=== PATIENT | female | born 1935 | race Caucasian/White ===

== ENCOUNTER → 2017-06-12 | Outpatient (CLI) | payer MEDICARE, BC ==
[2016-09-08 16:13] VITALS: BMI 33.5
[~2017-06-12] MED LIST: ACE500 PO; ACET-2007 PO; ACET-2043 PO; ACET-2146 PO; APIX2.5T PO; ASPI-715 PO; ASPI81TA94 PO; ATOR10TA65 PO; AZIT-9 PO; CALC-18 PO; CALC-547 PO; CALC500T86 PO; CEFU250 PO; CELE-1 PO; CELE100C79 PO; CELE50CA2 PO; CEPH250C37 PO; CHOL10005 PO; CHOL100059 PO; CIPR-344 PO; CIT20 PO; CITA-139 PO; CLO5 PO; CLON-298 PO; CLON-303 PO; CYAN500T38 PO; CYCL1DRO6 OP; CYCOD OP; DAR100 PO; DILT-100 PO; DILT-145 PO; DILT120C18 PO; DOC100 PO; DOCU-202 PO; DULO30CA6 PO; DULO60CA56 PO; ENO100I SC; ENO150PT SQ; ENOX120D5 SQ; ESC10 PO; ESCI20TA38 PO; ESOM10SU2 PO; ESOM40CA42 PO; FISH OIL1 CAP PO; FLU IM; FLU30SYR8 IM ONLY; FLU45SYR17 IM; FLU45SYR25 IM ONLY; FOLI0.4T56 PO; FURO-45 PO; GAB100 PO; GAB300 PO; GABA-549 PO; GABA250S3 PO; GUAI600T PO; HEPA100D58 SQ; HEPA500016 SQ; HEPA500035 SC; HEPA500035 SQ; HEPARIN; HYDR-385 PO; HYDR-389 PO; HYDR2TAB74 PO; HYDROCHLOROTHIAZIDE; LAN30PT PO; LANS30CA70 PO; LID5T TOP; LID5T TP; LOR5 PO; LOSA-165 PO; LOSA-37 PO; LOSA50TA72 PO; LOSARTAN; MELO-149 PO; MELO-150 PO; MELO-205 PO; METANEX; METH1TAB47 PO; METO25TA23 PO; MOM PO; MV-M1TAB38; NYST15PO12 TP; OMEG-55 PO; OMEG300C PO; ONDA8TAB91 PO; OXYB5TAB86 PO; OXYC-823 PO; OXYC20TA99 PO; OXYC5TAB38 PO; PAN40 PO; POLY17PO21 PO; POTA-23 PO; PRE10 PO; ROS10 PO; SERT-181 PO; SERT-184 PO; TRA50 PO; TRAM-420 PO; TRAM100T22 PO; TRIA15CR40 TP; VALS-25 PO; VALS1TAB80 PO; VALS1TAB96 PO; VIT D PO; VIT-3 PO; VIT-7 PO; VIT-9 PO; VIT1CAPS PO; VIT1CAPS32 PO; VIT1CAPS34 PO; VIT1CAPS38 PO; WARF2.5T4 PO; XOPENEX INH; ZANTAC PO; [UNRECOGNIZED DRUG - CODE] PO; [UNRECOGNIZED DRUG - OTHER]; [UNRECOGNIZED DRUG - OTHER] OD
[2017-06-12 16:23] LABS: PLATELET COUNT, AUTOMATED 135 K/uL (150-450)
== END ==
LOC: LAB 16:05
PROVIDERS: ATTEND Nurse Practitioner Family
DX: I10 Essential (primary) hypertension (principal); I50.9 Heart failure, unspecified; E11.40 Type 2 diabetes mellitus with diabetic neuropathy, unspecified; I48.91 Unspecified atrial fibrillation
CPT/HCPCS: 36415; 82040; 82247; 82310; 82374; 82435; 82565; 82947; 83036; 83880; 84075; 84132; 84155; 84295; 84450; 84460; 84520; 85025

== ENCOUNTER → 2017-10-18 | Outpatient (CLI) | payer MEDICARE, BC ==
[2016-09-08 16:13] VITALS: BMI 33.5
[~2017-10-18] MED LIST changes: -CITA-139 PO; +CITA-145 PO
--- NOTE | 2017-10-18 14:39 | RADIOLOGY IMAGING REPORT ---
[place] [facility] [place]: Paola Conteh : 1935 MR: [id number] V: [id number] EXAM DATE: ORDERING PHYSICIAN: YOANDY OSMAN TECHNOLOGIST: Location: [facility] - [place] Patient: Paola Conteh : 1935 Visit/Account:[id number] Date of Sevice: 10/18/2017 Exam type: SOFT TISSUE NON-SPECIFIC History: Painful left gluteal mass Comparison: None. Findings: In the lateral aspect of the left buttock just beneath the skin is a vague echogenic polylobular kristina d appearing mass measuring approximately 4 x 2.6 x 3.7 cm. A small amount of blood flow is noted wit hin the space-occupying process. A sinus tract was not demonstrated towards the skin although by his tory there is a small red area immediately adjacent on the skin. No fluid components are identified. IMPRESSION: 1. Solid probably lobular mildly hypervascular echogenic mass lateral aspect of the right buttocks m easuring 4 x 2.6 x 3.7 cm. This does not have the sonographic appearance of an abscess although coul d possibly represent an inflammatory phlegmon. Solid mass lesion not excluded. If further imaging i s desired CT or MR with and without contrast may be of value. Report Dictated By: Zoraida Mendenhall MD at 10/18/2017 2:31 PM Report E-Signed By: Zoraida Mendenhall MD at 10/18/2017 2:33 PM WSN:[email or web address]
== END ==
LOC: US 01:09
PROVIDERS: ATTEND Nurse Practitioner Family
DX: R22.2 Localized swelling, mass and lump, trunk (principal)
CPT/HCPCS: 76999

== ENCOUNTER → 2017-11-21 | Outpatient (CLI) | payer MEDICARE, BC ==
[2016-09-08 16:13] VITALS: BMI 33.5
[~2017-11-21] MED LIST changes: -CLON-298 PO; +CLON-331 PO; +IOPAMIDOL 76% 75 ML INFUS BTL 75 ML ONE; +PREG25 PO
--- NOTE | 2017-11-21 12:58 | RADIOLOGY IMAGING REPORT ---
[place] [facility] [place] Paola Conteh : 1935 MR: [id number] V: [id number] EXAM DATE: ORDERING PHYSICIAN: ANNA NOLAN TECHNOLOGIST: Location: [facility] Patient: Paola Conteh : 1935 Visit/Account:[id number] Date of Sevice: 11/21/2017 PELVIS W W/O CONTRAST HISTORY: Mass L. buttock inferior CT scan of the pelvis. TECHNIQUE: One of the following dose optimization techniques was utilized in the performance of this exam: Autom ated exposure control; adjustment of the mA and/or kV according to the patient's size; or use of an i terative reconstruction technique. Specific details can be referenced in the facility's radiology C T exam operational policy. Comparison made to a previous CT from 11/09/2015 FINDINGS: Within the left buttocks there is a focal area of 2.6 cm skin thickening in the lower posterior infer ior aspect of the buttocks with a fat contained area of inflammation measuring approximately 1.5 cm i n greatest width and approximately 8 cm in length extending from the skin to the level of the greater trochanter. The surrounding soft tissues have a generalized inflammation/edema throughout the left buttocks. Generalized muscle atrophy throughout the pelvis. No acute bony pathology. Advanced degenerative changes in both hips. Retrolisthesis of L5 respect L 4 with DJD vacuum phenomenon noted throughout the visualized lumbar spine. Pelvic structures are unremarkable. There is a generalized fullness within the anorectal area that i s unchanged when compared to the previous study. IMPRESSION: 1. Features of the left buttocks compatible with a focal area of fat necrosis and adjacent subcutane ous edema change. This associated with a focal area of skin thickening immediately contiguous to the focal fat necrosis. 2. Fullness in the anorectal region unchanged when compared to previous CT scan Report Dictated By: Rebel Ferraro MD at 11/21/2017 12:27 PM Report E-Signed By: eRbel Ferraro MD at 11/21/2017 12:54 PM WSN:[email or web address]
== END ==
LOC: CT 00:47
PROVIDERS: ATTEND Surgery
DX: R22.2 Localized swelling, mass and lump, trunk (principal)
CPT/HCPCS: 36415; 72194; 82565; Q9967

== ENCOUNTER → 2017-12-25 | Outpatient (CLI) | payer MEDICARE, BC ==
[2016-09-08 16:13] VITALS: BMI 33.5
[~2017-12-25] MED LIST changes: -IOPAMIDOL 76% 75 ML INFUS BTL 75 ML ONE; +[UNRECOGNIZED DRUG - CODE] TP
[2017-12-25 14:14] LABS: PLATELET COUNT, AUTOMATED 176 K/uL (150-450)
== END ==
LOC: LAB 14:07
PROVIDERS: ATTEND Nurse Practitioner Family
DX: E11.9 Type 2 diabetes mellitus without complications (principal); Z79.01 Long term (current) use of anticoagulants; I10 Essential (primary) hypertension
CPT/HCPCS: 36415; 82040; 82247; 82310; 82374; 82435; 82565; 82947; 83036; 84075; 84132; 84155; 84295; 84450; 84460; 84520; 85025

== ENCOUNTER → 2018-01-01 | Outpatient (CLI) | payer MEDICARE, BC ==
[2016-09-08 16:13] VITALS: BMI 33.5
--- NOTE | 2018-01-01 11:51 | EKG ---
[place] [facility] [place] JESUS CHAIREZ : [id number] MR: [id number] V: [id number] EXAM DATE: ORDERING PHYSICIAN: YOANDY OSMAN TECHNOLOGIST: Test Reason : Blood Pressure : / mmHG Vent. Rate : 065 BPM Atrial Rate : 065 BPM P-R Int : 176 ms QRS Dur : 074 ms QT Int : 428 ms P-R-T Axes : 083 -09 071 degrees QTc Int : 445 ms Normal sinus rhythm Nonspecific ST abnormality Abnormal ECG No previous ECGs available Confirmed by ANNA ABDI ([id number]) on 01/02/2018 6:32:39 AM Referred By: Confirmed By:ANNA ABDI
== END ==
LOC: CARD 11:35
PROVIDERS: ATTEND Nurse Practitioner Family
DX: Z01.810 Encounter for preprocedural cardiovascular examination (principal); R94.31 Abnormal electrocardiogram [ECG] [EKG]
CPT/HCPCS: 93005

== ENCOUNTER 2018-01-03 00:48 | Day surgery (SDC) | payer MEDICARE, BC ==
[2016-09-08 16:13] VITALS: Ht 160 cm; Wt 72.6 kg
[~2018-01-03] VITALS: Ht 160 cm; Wt 72.6 kg
[2018-01-03] MEDS ORDERED: fentaNYL CITR 100 MCG/2 ML AMP ONE (09:25)
[2018-01-03] MEDS ORDERED: PROPOFOL EMUL(*) 10MG/ML 20 ML 20 ML ONE (09:26)
[2018-01-03] MEDS ORDERED: ONDANSETRON 4 MG/2 ML VIAL ONE (09:26)
[2018-01-03] MEDS ORDERED: LIDOCAINE MPF 1% 5 ML VIAL ONE (09:26)
[2018-01-03] MEDS ORDERED: ceFAZolin(*) 2GM/D5W 50ML 50 ML IVPB ONE (10:30)
[2018-01-03 10:39] VITALS: BP 134/64
[2018-01-03 10:57] LABS: INR 1.01
[2018-01-03] MEDS ORDERED: MIDAZOLAM 2 MG/2 ML VIAL IVP PRN (11:05)
[2018-01-03] MEDS ORDERED: LIDOCAINE/SOD BICARB 8.4% SYR ID ONE (11:05)
[2018-01-03] MEDS ORDERED: NORMOSOL R SOLN(*) 1000 ML BAG 1,000 ML IV PRN (11:05)
[2018-01-03] MEDS ORDERED: LIDO/EPI 1% MDV 1:100,000 20ML INFIL ONE (11:24)
[2018-01-03] MEDS ORDERED: DEXTROSE 50% 50 ML SYR ONE (11:28)
[2018-01-03 12:22] VITALS: BP 81/36
--- NOTE | 2018-01-03 12:39 | Short(Outpt) Discharge Summary ---
Discharge Summary Reason for Hosp/Final Diag: (1) Mass Status: Chronic Hospital Course & Plan: Left buttock mass excision completed without problems. Departure Discharge to: Home, Self Care Discharge Instructions Home Meds Active Scripts Foam Bandage (MEPILEX) 1 Each Bandage, EACH TP Q3-7 days, #10 12 Refills Prov:YOANDY OSMAN APRNP-C 01/02/18 Oxybutynin Chloride (OXYBUTYNIN CHLORIDE) 5 Mg Tablet, 1 TAB PO BID, #180 TAB 1 Refill Prov:YOANDY OSMAN APRN ORNAMENTAL PLASTERER HELPER-C 12/31/17 Triamcinolone Acetonide 0.1% Cr 15 Gm Tube (TRIAMCINOLONE ACETONIDE 0.1% CREAM) 15 Gm Cream..g., 1 LAURO TP TID, #60 TUBE 0 Refills apply as needed to affected areas. Do not apply to face, genitals or skin folds Prov:YOANDY OSMAN APRNP-C 12/07/17 Oxycodone Hcl (OXYCODONE HCL) 5 Mg Tablet, 1 TAB PO Q6H PRN for PAIN, #120 TAB 0 Refills May fill on or after 12/20/17 Prov:YOANDY OSMAN APRNP-C 10/15/17 Oxycodone Hcl (OXYCONTIN) 10 Mg Tab.er.12h, 10 MG PO BID for pain., #60 TAB May fill on or after 12/24/17 Prov:YOANDY OSMAN APRNP-C 10/15/17 Furosemide (FUROSEMIDE) 20 Mg Tablet, 1 TAB PO QODAY, #45 TAB 1 Refill Prov:YOANDY OSMAN APRNP-C 09/13/17 Potassium Chloride (KLOR-CON 10) 10 Meq Tablet.er, 1 TAB PO DAILY, #90 TAB 2 Refills Prov:YOANDY OSMAN APRNP-C 08/20/17 Sertraline Hcl (SERTRALINE HCL) 100 Mg Tablet, 1 TAB PO QDAY, #90 TAB 1 Refill Prov:YOANDY OSMAN APRNP-C 08/01/17 Apixaban (ELIQUIS) 2.5 Mg Tablet, 1 TAB PO BID, #180 TAB 3 Refills Prov:YOANDY OSMAN LILIA PÉREZP-C 02/12/17 Reported Medications Gabapentin (GABAPENTIN) 300 Mg Capsule, 300 MG PO BID, CAPSULE 01/01/18 Cholecalciferol (Vitamin D3) (VITAMIN D3) 1,000 Unit Capsule, 1000 UNIT PO DAILY, CAPSULE 03/15/17 [place]-3S/Dha/Epa/Fish Oil (Fish Oil EC 1,200 mg Softgel) 1 Each Capsule.dr, 1 CAP PO DAILY 03/15/17 Mv-Mn/FA/Vit K/Lycop/Lut/Zeaxa (Ocuvite Eye + Multi Tablet) 1 Each Tablet, DAILY 09/14/16 Vit B6/Mag Cit & Ox/Potass Cit (THERALITH XR TABLET) 1 Each Tablet.er, PO 07/04/15 Calcium Carbonate (CALCIUM) 500 Mg Tab.chew, 1 TAB PO DAILY, TAB.CHEW 04/23/15 Cyanocobalamin (Vitamin B-12) (VITAMIN B-12) 500 Mcg Tablet, 1 TAB PO 04/23/15 Aspirin (ASPIRIN) 81 Mg Tab.chew, 81 MG PO QDAY, TAB.CHEW TAKE 1 TABLET BY MOUTH EVERY DAY 12/25/13 Discontinued Scripts Pregabalin (LYRICA) 25 Mg Cap, 1 CAP PO TID, #90 CAP 0 Refills Prov:LISANDROBAYRONYOANDY APRN-Mynor 10/31/17 Follow up Referrals: General Surgery - 01/15/18 @ Surgery, General with ANNA NOLAN MD You have a follow up appointment scheduled with Dr. Nolan on 01/15/18, at 4:45pm. Diet: Regular Activity: As Tolerated Special Instructions: You can remove the dressing on 01/05/18, then you can shower. After showering, leave the incision open to air but leave the steristrips in place until they fall off on their own. Do not immerse the incision for 2 weeks. Avoid sitting or laying on the incision for 2 weeks. ANNA NOLAN MD Jan 03, 2018 12:39
--- NOTE | 2018-01-03 12:41 | Post Operative Progress Note ---
Post Operative Progress Note Date: Jan 03, 2018 Time: 12:40 Surgeon: Pilo Dictation number: [id number] Anesthesia: TIVA by Dr. Katz Pre-Op Diagnosis: Left buttock mass Post-Op Diagnosis: NATALIIA Findings: C/W dx Procedure(s): Excision of left buttock mass Specimen Removed:(May be N/A): Left buttock mass Complications: None Fluids: See anesthesia record Estimated Blood Loss: Minimal Date OP Note Dictated: Jan 03, 2018 Time OP Note Dictated: 12:41 ANNA NOLAN MD Jan 03, 2018 12:41
[2018-01-03 12:51] VITALS: BP 102/43
[2018-01-03 13:26] VITALS: BP 112/45
[2018-01-03] MEDS ORDERED: oxyCODONE HCL 5 MG CAP PO ONE (13:50)
[2018-01-03 14:00] VITALS: BP 109/48
[2018-01-03] MEDS ORDERED: FAMOTIDINE 20 MG TAB PO ONE (14:00)
[2018-01-03 14:29] VITALS: BP 117/75
--- NOTE | 2018-01-03 14:39 | OPERATIVE REPORT 1 ---
EVENT DATE: January 03, 2018 SURGEON: Amadou Daigle MD ANESTHESIOLOGIST: Luis Villalobos MD ANESTHESIA: TIVA PREOPERATIVE DIAGNOSIS Left buttock subcutaneous mass. POSTOPERATIVE DIAGNOSIS Left buttock subcutaneous mass. PROCEDURE PERFORMED Excision of left buttock mass. COMPLICATIONS None. CONDITION Stable. ESTIMATED BLOOD LOSS Minimal. INDICATIONS This is an 82-year-old female who was referred to me with a mass on the volar lateral portion of the left buttock that had been present for several months and is slowly getting larger. She was requesting to have it removed for definitive diagnosis in addition to the discomfort in which it causes her. DESCRIPTION OF PROCEDURE The patient was brought to the operating room and placed in a right lateral decubitus position on the rmaine. TIVA anesthesia was administered. Her left buttock was prepped and draped in sterile fashion. A timout was completed. I marked the skin overlying the palpable mass and there was a small area of skin that had dimpled by the mass. I anesthetized the skin where I marked and then made an elliptical incision around the dimpled area and the mass and dissected the dermis and subcutaneous fat to the mass. I dissected the subcutaneous fat all around the mass and it seemed to tack laterally almost towards her left hip joint. I dissected all the way down but it did not reach the joint and I dissected around it, removed it from the cavity and passed the specimen off the field. I made the wound hemostatic with electrocautery, irrigated and dried the wound and then closed the subcutaneous pocket with interrupted 3-0 Vicryl sutures and the skin was closed with interrupted 3-0 Vicryl deep dermal sutures and 4-0 Monocryl running subcuticular suture. The skin was cleaned, dried and Steri-Strips were applied followed by a sterile surgical dressing. The patient was then brought to the recovery area in good condition having tolerated the procedure without any apparent problems. RANJAN
== END 2018-01-03 16:32 | disposition home or self-care (01) ==
LOC: OR 00:48
PROVIDERS: ATTEND Surgery
DX: R22.42 Localized swelling, mass and lump, left lower limb (principal); Z86.718 Personal history of other venous thrombosis and embolism; I48.2 Chronic atrial fibrillation; I10 Essential (primary) hypertension; E11.9 Type 2 diabetes mellitus without complications
CPT/HCPCS: 21931; 36415; 85610; 88305; A9270; J2001; J2405; J2704; J3010; J0690

== ENCOUNTER → 2018-05-21 | Outpatient (CLI) | payer MEDICARE, BC ==
[2016-09-08 16:13] VITALS: BMI 33.5
[~2018-05-21] MED LIST changes: +DILT120C12 PO; -DILT120C18 PO; +FLU180SY11 IM; +Hospital Bed; -LOSA50TA72 PO; +LOSA50TA80 PO; +POLY17PO11 PO; -POLY17PO21 PO
[2018-05-21 15:38] LABS: PLATELET COUNT, AUTOMATED 160 K/uL (150-450)
== END ==
LOC: LAB 15:10
PROVIDERS: ATTEND Nurse Practitioner Family
DX: I10 Essential (primary) hypertension (principal); Z79.01 Long term (current) use of anticoagulants; E11.9 Type 2 diabetes mellitus without complications; R63.4 Abnormal weight loss
CPT/HCPCS: 36415; 82040; 82247; 82310; 82374; 82435; 82565; 82947; 83036; 84075; 84132; 84155; 84295; 84443; 84450; 84460; 84520; 85025; 85651; 86140

== ENCOUNTER → 2018-05-21 | Outpatient (CLI) | payer MEDICARE, BC ==
[2016-09-08 16:13] VITALS: BMI 33.5
== END ==
LOC: LAB 15:29
PROVIDERS: ATTEND Nurse Practitioner Family
DX: Z02.9 Encounter for administrative examinations, unspecified (principal)

== ENCOUNTER → 2018-07-03 | Outpatient (CLI) | payer MEDICARE, BC ==
[2016-09-08 16:13] VITALS: BMI 33.5
[~2018-07-03] MED LIST changes: +BARIUM SULFATE 148 GM POWDER ONE
--- NOTE | 2018-07-03 16:34 | SLP MODIFIED BARIUM SWALLOW ---
MODIFIED BARIUM SWALLOW STUDY REPORT Ordering Provider: SAMANTHA Maldonado Clinician: Philomena Aguirre MS, CCC-WORLD GEOGRAPHY TEACHER Type of Assessment: MBSS Patient: Paola Conteh : [birth year] Evaluation Date: 07/03/18 BACKGROUND The patient is an 82-year-old female who presents for an outpatient modified barium swallow study (MBSS) due to c/o difficulty swallowing pills with associated choking. Pt also with 20lb weight loss over the past 1-2 months. She was referred for completion of an MBSS by her primary care physician. ASSESSMENT Diagnosis: dysphagia Past Medical Hx: GERD, DM2, HTN, pulmonary embolism, bacterial pneumonia, COPD, A fib Pain Scale (0-10): 0 Orientation: A&O x4 Sialorrhea: no Xerostomia: no Hygiene: no Supplemental Oxygen Use: no COPD Dx: Yes Pain with Swallow: denies Oral mechanism examination: grossly WNL. Poor dentition. Overall impression: suspected esophageal dysphagia. In conjunction with radiology, the pt was seated in the lateral view and analyzed with trials of the following consistencies: thin liquids via single and consecutive cup sip, pureed solids, mechanically altered solids, advanced solids, and a 1cm barium pill paired with thin liquids. Pt presented with minimal oropharyngeal dysphagia. Oral phase deficits characterized by slowed mastication and mildly delayed completion of anterior to posterior transit with solid textures. Oral bolus control was good with thin liquids, pureed textures, and masticated bolus of soft and hard solids. Pharyngeally, pt demonstrated good base of tongue retraction, strong pharyngeal stripping waveform, and adequate hyolaryngeal movement/epiglottic inversion. Mild, flash penetration was observed during the swallow with single and consecutive sips of thin liquids (PAS 2). This occurred due to mild delay in timing of laryngeal vestibule closure. This is considered a normal deviation in swallow function, particularly for this pts age range. Esophageal dysphagia is suspected, including a posterior prominence at the cricopharyngeus. Further posterior prominences were noted against contrast in the cervical esophagus, possibly reflective of cervical osteophytes. During completion of an esophageal sweep with barium pill administration, notable narrowing was seen in the distal esophagus. A GI consult is recommended. Penetration/Aspiration Scale (PAS)*: Thin liquids: Score of 2, Material enters the airway (briefly), remains above the vocal folds, and is ejected from the airway. All other consistencies: Score of 1, Material does not enter airway *(Yakovk et al. 1996) SUMMARY and RECOMMENDATIONS Aspiration Risk: Low. Negative prognostic indicators include elevated risk for aspiration associated with suspected esophageal dysphagia, and reported history of choking episodes. Dysphagia Outcome Severity Scale: Level 6; modified independence with functional oropharyngeal swallow mechanism. Recommend avoidance of problematic foods. Speech Therapy Need Further ST interventions are not warranted. RECOMMENDATIONS 1. Diet: regular, thin liquids. 2. Medications: whole, with thin liquids 3. Compensatory Techniques: upright positioning during PO intake, remain upright 30-45 minutes after PO intake. 4. Referral: GI consult Thank you for this referral. Please contact [facility] with further questions or concerns. Respectfully, Philomena Aguirre M.S., [facility]-WORLD GEOGRAPHY TEACHER Speech Therapist Physician Signature [*] RANJAN
--- NOTE | 2018-07-03 17:20 | RADIOLOGY IMAGING REPORT ---
FACILITY: [facility] PATIENT NAME: Paola Conteh : 1935 MR: [id number] V: [id number] EXAM DATE: ORDERING PHYSICIAN: YOANDY OSMAN TECHNOLOGIST: Location: [facility] Patient: Paola Conteh : 1935 Visit/Account:[id number] Date of Sevice: 07/03/2018 Exam type: ESOPH VIDEO SWALLOWING History: Dysphasia Comparison: None. Findings: The modified swallow was performed by the speech pathologist. The patient received thin barium a bar ium tablet and various food substances. There is possible esophageal dysphasia. Please see the [facility] pathologist report for complete details. The fluoroscopy dose area product was 170.37 micro-Doss per meter squared IMPRESSION: 1. As above Report Dictated By: Zoraida Mendenhall MD at 07/03/2018 5:14 PM Report E-Signed By: Zoraida Mendenhall MD at 07/03/2018 5:15 PM WSN:[email or web address]
== END ==
LOC: RAD 06-24 01:06
PROVIDERS: ATTEND Nurse Practitioner Family
DX: R63.4 Abnormal weight loss (principal); R13.10 Dysphagia, unspecified
CPT/HCPCS: 74230

== ENCOUNTER → 2018-10-25 | Outpatient (CLI) | payer MEDICARE, BC ==
[2016-09-08 16:13] VITALS: BMI 33.5
[~2018-10-25] MED LIST changes: -BARIUM SULFATE 148 GM POWDER ONE; -CYAN500T38 PO; +CYAN500T39 PO; +DICL100G39 TOP
[2018-10-25 11:37] LABS: PLATELET COUNT, AUTOMATED 133 K/uL (150-450)
== END ==
LOC: LAB 11:27
PROVIDERS: ATTEND Nurse Practitioner Family
DX: E11.9 Type 2 diabetes mellitus without complications (principal); I10 Essential (primary) hypertension
CPT/HCPCS: 36415; 82040; 82247; 82310; 82374; 82435; 82565; 82947; 83735; 84075; 84132; 84155; 84295; 84443; 84450; 84460; 84520; 85025